=== PATIENT | female | born 1955 | race Caucasian/White ===

== ENCOUNTER 2019-04-01 12:17 | Emergency (ER) | payer MEDICARE ==
[~2019-04-01] VITALS: Ht 182.9 cm; Wt 70.1 kg
--- NOTE | 2019-04-01 12:54 | NUR ---
ASSUMED CARE OF PATIENT IN ROOM 4. ANTONIO GAYLE AT BEDSIDE. 2 WARM BLANKETS PROVIDED. AT BEDSIDE.
[2019-04-01] MEDS ORDERED: SODIUM CHLORIDE FLUSH 10ML SYR IVF ONE (13:30)
[2019-04-01] MEDS ORDERED: METOCLOPRAMIDE 5 MG/ML, 2ML ONE (13:31)
[2019-04-01] MEDS ORDERED: HYDROmorphone 2 MG/ML, 1ML ONE ×2 (13:32→14:42)
[2019-04-01 13:50] LABS: BASOPHILS # (AUTO) 0.05 x10^3/uL (0-0.1); BASOPHILS % (AUTO) 1 % (0-1); EOSINOPHILS # (AUTO) 0.15 x10^3/uL (0-0.4); EOSINOPHILS % (AUTO) 2 % (1-7); LYMPHOCYTES # (AUTO) 1.55 x10^3/uL (1-3.4); LYMPHOCYTES % (AUTO) 17 % (22-44); MD NO; MEAN CORPUSCULAR HEMOGLOBIN 30.8 pg (27.0-34.8); MEAN CORPUSCULAR HGB CONC 33.3 g/dL (32.4-35.8); MEAN CORPUSCULAR VOLUME 92.5 fL (80-100); MEAN PLATELET VOLUME 9.1 fL (7.4-10.4); MONOCYTES # (AUTO) 0.66 x10^3/uL (0.2-0.8); MONOCYTES % (AUTO) 8 % (2-9); NEUTROPHILS % (AUTO) 73 % (42-75); PLATELET COUNT 216 x10^3/uL (130-400); RED BLOOD COUNT 4.44 x10^6/uL (3.82-5.3); RED CELL DISTRIBUTION WIDTH 14.3 % (9.6-15.2)
[2019-04-01 14:00] LABS: ALANINE AMINOTRANSFERASE 35 U/L (12-78); ALBUMIN 3.9 g/dL (3.4-5.0); ANION GAP 5 mmol/L (5-15); CHLORIDE 104 mmol/L (98-107); CREATININE 1.22 mg/dL (0.55-1.02)
[2019-04-01] MEDS ORDERED: METOCLOPRAMIDE 5 MG/ML, 2ML IM ONE (14:00)
[2019-04-01] MEDS ORDERED: HYDROmorphone 1 MG/ML, 1ML INJ IM ONE (14:00)
[2019-04-01 14:02] LABS: ALKALINE PHOSPHATASE 124 U/L (45-117); BILIRUBIN,TOTAL 0.4 mg/dL (0.2-1.0)
[2019-04-01] MEDS ORDERED: HYDROmorphone 2 MG/ML, 1ML IM ONE (14:30)
[2019-04-01 15:08] VITALS: BP 124/75
== END 2019-04-01 15:33 | disposition home or self-care (01) ==
LOC: ED 15:20
DX: G89.29 Other chronic pain (principal); M51.36 Other intervertebral disc degeneration, lumbar region; M54.5 Low back pain; R51 Headache
CPT/HCPCS: 36415; 70450; 72131; 80053; 85025; 96372; 99284; J1170; J2765

== ENCOUNTER 2019-08-08 07:50 | Outpatient (CLI) | payer MEDICARE | END 2019-08-08 23:59 | disposition home or self-care (01) | LOC: RAD 07:50 | PROVIDERS: ATTEND Neurological Surgery | DX: K50.811 Crohn's disease of both small and large intestine with rectal bleeding (principal); M47.812 Spondylosis without myelopathy or radiculopathy, cervical region; M47.895 Other spondylosis, thoracolumbar region; M47.896 Other spondylosis, lumbar region; J45.909 Unspecified asthma, uncomplicated; R11.12 Projectile vomiting; R13.10 Dysphagia, unspecified; G47.30 Sleep apnea, unspecified; I48.91 Unspecified atrial fibrillation; K22.8 Other specified diseases of esophagus; M51.36 Other intervertebral disc degeneration, lumbar region; M25.78 Osteophyte, vertebrae; M43.22 Fusion of spine, cervical region; M48.061 Spinal stenosis, lumbar region without neurogenic claudication; M50.323 Other cervical disc degeneration at C6-C7 level; M50.31 Other cervical disc degeneration, high cervical region; M50.321 Other cervical disc degeneration at C4-C5 level; M51.34 Other intervertebral disc degeneration, thoracic region; Z86.14 Personal history of Methicillin resistant Staphylococcus aureus infection; Z16.21 Resistance to vancomycin; Z88.8 Allergy status to other drugs, medicaments and biological substances; Z88.5 Allergy status to narcotic agent; Z88.2 Allergy status to sulfonamides; Z98.890 Other specified postprocedural states | CPT/HCPCS: 72050; 72110; 72141; 72148; 74220 ==

== ENCOUNTER → 2019-08-24 | Outpatient (CLI) | payer MEDICARE | END | disposition home or self-care (01) | LOC: RAD 09:56 | PROVIDERS: ATTEND Internal Medicine Gastroenterology | DX: R13.12 Dysphagia, oropharyngeal phase (principal); R13.14 Dysphagia, pharyngoesophageal phase | CPT/HCPCS: 74230 ==

== ENCOUNTER 2020-01-19 14:54 | Emergency (ER) | payer MEDICARE ==
[~2020-01-19] VITALS: Ht 182.9 cm; Wt 68.5 kg
--- NOTE | 2020-01-19 15:05 | NUR ---
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 I'VE HAD ABDOMINAL PAIN, BUT I ALWAYS HAVE THAT IT'S NOTHING NEW. I DON'T HAVE A COLON, SO EVERYTHING COMES OUT." PT PLACED ON CONT PULSE OX,NIBP. NO C/O N/V/D, TRAUMA, SYNCOPE, CP, SOB.
--- NOTE | 2020-01-19 15:06 | NUR ---
PT PREFERS TO STAY IN HER PERSONAL GOWN INSTEAD OF CHANGING INTO HOSP GOWN.
--- NOTE | 2020-01-19 15:10 | NUR ---
PT STATES "I JUST NEED AN IM SHOT OF ZO[facility]AN. I DON'T WANT TO TAKE YOUR TIME"
[2020-01-19] MEDS ORDERED: ONDANSETRON 2MG/ML, 2ML ONE (15:47)
--- NOTE | 2020-01-19 15:50 | NUR ---
PIV ESTABLISHED. PT TOLERATED WITH NO COMPLICATIONS. NADN. VSS.
[2020-01-19 15:59] LABS: BASOPHILS # (AUTO) 0.05 x10^3/uL (0-0.1); BASOPHILS % (AUTO) 1 % (0-1); EOSINOPHILS # (AUTO) 0.13 x10^3/uL (0-0.4); EOSINOPHILS % (AUTO) 1 % (1-7); LYMPHOCYTES # (AUTO) 1.29 x10^3/uL (1-3.4); LYMPHOCYTES % (AUTO) 13 % (22-44); MD NO; MEAN CORPUSCULAR HEMOGLOBIN 31.1 pg (27.0-34.8); MEAN CORPUSCULAR HGB CONC 33.7 g/dL (32.4-35.8); MEAN CORPUSCULAR VOLUME 92.2 fL (80-100); MONOCYTES # (AUTO) 0.93 x10^3/uL (0.2-0.8); MONOCYTES % (AUTO) 9 % (2-9); NEUTROPHILS # (AUTO) 7.78 x10^3/uL (1.8-6.8); NEUTROPHILS % (AUTO) 77 % (42-75); PLATELET COUNT 215 x10^3/uL (130-400); RED BLOOD COUNT 4.65 x10^6/uL (3.82-5.3); RED CELL DISTRIBUTION WIDTH 13.4 % (9.6-15.2)
[2020-01-19] MEDS ORDERED: SODIUM CHLORIDE 0.9% 1,000ML IVBOLUS ONE (16:00)
[2020-01-19] MEDS ORDERED: ONDANSETRON 2MG/ML, 2ML IVPush ONE (16:00)
[2020-01-19 16:08] LABS: ALANINE AMINOTRANSFERASE 24 U/L (12-78); ANION GAP 9 mmol/L (5-15); CHLORIDE 105 mmol/L (98-107); CREATININE 1.42 mg/dL (0.55-1.02)
[2020-01-19 16:10] LABS: ALKALINE PHOSPHATASE 117 U/L (45-117); BILIRUBIN,TOTAL 0.4 mg/dL (0.2-1.0); TOTAL PROTEIN 8.2 g/dL (6.4-8.2)
[2020-01-19] MEDS ORDERED: POTASSIUM CHLORIDE 20 MEQ in SODIUM CHLORIDE 0.9% 250 ML IV ONE (16:30)
[2020-01-19] MEDS ORDERED: NS + 20MEQ KCL 1,000 ML IV ONE (17:09)
--- NOTE | 2020-01-19 17:21 | NUR ---
PT RESTING ON [facility]. NADN. MED ADMINSITERED PER EMAR. PT GIVEN ICE CHIPS.
[2020-01-19 17:54] VITALS: BP 124/49
--- NOTE | 2020-01-19 17:54 | NUR ---
PT ABLE TO KEEP ICE CHIPS DOWN. NO C/O VOMITING. RESTING ON GURNEY. JUAN JOSÉ.
--- NOTE | 2020-01-19 18:22 | NUR ---
PT RESTING ON [facility]. IVF ALMOST COMPLETED. NADN NO NEEDS REQUESTED AT THIS TIME.
--- NOTE | 2020-01-19 19:04 | NUR ---
BEDSIDE REPORT TO WILFRID PACE.
--- NOTE | 2020-01-19 19:09 | NUR ---
REPORT RECEIVED FROM WILFRID YOUNG. [facility]
[2020-01-19] MEDS ORDERED: FAMOTIDINE 20 MG/2 ML ONE (19:28)
[2020-01-19] MEDS ORDERED: FAMOTIDINE 20 MG/2 ML IVPush ONE (19:30)
== END 2020-01-19 19:46 ==
LOC: ED 16:18
DX: R11.2 Nausea with vomiting, unspecified (principal); E86.0 Dehydration; R10.9 Unspecified abdominal pain; R00.0 Tachycardia, unspecified; R19.7 Diarrhea, unspecified; K50.90 Crohn's disease, unspecified, without complications
CPT/HCPCS: 36415; 80053; 85025; 96361; 96365; 96375; 99284; J2405; J3480; J7030; J7050

== ENCOUNTER 2020-05-07 22:36 | Emergency (ER) | payer MEDICARE ==
[~2020-05-07] VITALS: Ht 182.9 cm; Wt 73.0 kg
[2020-05-07 22:38] VITALS: BP 134/68
--- NOTE | 2020-05-07 23:02 | NUR ---
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
[2020-05-08 00:01] LABS: BASOPHILS # (AUTO) 0.05 x10^3/uL (0-0.1); BASOPHILS % (AUTO) 1 % (0-1); EOSINOPHILS # (AUTO) 0.23 x10^3/uL (0-0.4); EOSINOPHILS % (AUTO) 3 % (1-7); LYMPHOCYTES # (AUTO) 1.78 x10^3/uL (1-3.4); LYMPHOCYTES % (AUTO) 22 % (22-44); MD NO; MEAN CORPUSCULAR HEMOGLOBIN 31.4 pg (27.0-34.8); MEAN CORPUSCULAR HGB CONC 33.7 g/dL (32.4-35.8); MEAN PLATELET VOLUME 8.2 fL (7.4-10.4); MONOCYTES % (AUTO) 9 % (2-9); NEUTROPHILS # (AUTO) 5.49 x10^3/uL (1.8-6.8); NEUTROPHILS % (AUTO) 67 % (42-75); PLATELET COUNT 254 x10^3/uL (130-400); RED BLOOD COUNT 4.55 x10^6/uL (3.82-5.3); RED CELL DISTRIBUTION WIDTH 12.6 % (9.6-15.2)
[2020-05-08 00:12] LABS: ALANINE AMINOTRANSFERASE 31 U/L (12-78); ALBUMIN 3.4 g/dL (3.4-5.0); ANION GAP 10 mmol/L (5-15); CALCIUM 9.2 mg/dL (8.5-10.1); CHLORIDE 108 mmol/L (98-107)
[2020-05-08 00:14] LABS: ALKALINE PHOSPHATASE 111 U/L (45-117); BILIRUBIN,TOTAL 0.5 mg/dL (0.2-1.0); TOTAL PROTEIN 8.2 g/dL (6.4-8.2)
== END 2020-05-08 01:38 | disposition home or self-care (01) ==
LOC: ED 23:49
DX: G43.909 Migraine, unspecified, not intractable, without status migrainosus (principal); R10.84 Generalized abdominal pain; G89.29 Other chronic pain
CPT/HCPCS: 36415; 80053; 83690; 85025; 99283

== ENCOUNTER → 2020-06-05 | Outpatient (CLI) | payer MEDICARE | END | disposition home or self-care (01) | LOC: WOUND 13:59 | PROVIDERS: ATTEND Nurse Practitioner Family | DX: Z93.2 Ileostomy status (principal); G43.909 Migraine, unspecified, not intractable, without status migrainosus; G89.29 Other chronic pain | CPT/HCPCS: G0463 ==